=== PATIENT | female | born 1940 ===

== ENCOUNTER 2017-03-23 09:50 | Emergency (ER) | payer MEDICARE, OTHER ==
[2017-03-23 09:54] VITALS: BMI 25.4
[2017-03-23 09:58] VITALS: RESP 18; TEMP 98.2
--- NOTE | 2017-03-23 10:06 | ED PDOC ---
Arrival/HPI - General Chief Complaint: Female Genitourinary Time Seen by Provider: 03/23/17 10:05 Historian: Patient - History of Present Illness Narrative History of Present Illness (Text): 03/23/17 10:06 This 76 yo female with pmh uterine prolapse, gastric ulcer, left knee arthritis , presents to this ED c/o vaginal bleeding x 3 days. Bleeding is mild, but she feels prolapse has worsen. Denies other complains. Time/Duration: < week Context: Home Past Medical History - Provider Review Nursing Documentation Reviewed: Yes - Infectious Disease Hx of Infectious Diseases: None - Musculoskeletal/Rheumatological Hx Musculoskeletal Disorders: Yes Other/Comment: L knee pain, chronic - Gastrointestinal Hx Gastrointestinal Disorders: No - Psychiatric Hx Psychophysiologic Disorder: No Hx Substance Use: No - Anesthesia Hx Anesthesia: No Family/Social History - Physician Review Nursing Documentation Reviewed: Yes Family/Social History: No Known Family HX Smoking Status: Never Smoked Hx Alcohol Use: No Hx Substance Use: No Allergies/Home Meds Allergies/Adverse Reactions: Allergies No Known Allergies Allergy (Verified 03/23/17 09:54) Review of Systems - Review of Systems Constitutional: Normal. absent: Fatigue, Weight Change, Fevers, Night Sweats Eyes: Normal ENT: Normal Respiratory: Normal. absent: SOB, Cough Cardiovascular: Normal. absent: Chest Pain, Palpitations Gastrointestinal: Normal. absent: Abdominal Pain, Nausea, Vomiting Genitourinary Female: Vaginal Bleeding, Other (vaginal itching.). absent: Dysuria, Frequency, Hematuria, Vaginal Discharge Musculoskeletal: Normal. absent: Back Pain Skin: Normal Neurological: Normal. absent: Headache, Dizziness Endocrine: Normal Hemo/Lymphatic: Normal Psychiatric: Normal Physical Exam Vital Signs Temp Pulse Resp BP Pulse Ox 03/23/17 12:18 67 18 149/69 96 03/23/17 11:37 66 18 148/65 95 03/23/17 09:57 98.2 F 68 18 151/68 H 95 Temperature: Afebrile Blood Pressure: Normal Pulse: Regular Respiratory Rate: Normal Appearance: Positive for: Well-Appearing, Non-Toxic, Comfortable Pain Distress: None Mental Status: Positive for: Alert and Oriented X 3 - Systems Exam Head: Present: Atraumatic, Normocephalic Pupils: Present: PERRL Extroacular Muscles: Present: EOMI Conjunctiva: Present: Normal Mouth: Present: Moist Mucous Membranes Neck: Present: Normal Range of Motion Respiratory/Chest: Present: Clear to Auscultation, Good Air Exchange. No: Respiratory Distress, Accessory Muscle Use Cardiovascular: Present: Regular Rate and Rhythm, Normal S1, S2. No: Murmurs Abdomen: Present: Normal Bowel Sounds. No: Tenderness, Distention, Peritoneal Signs Back: Present: Normal Inspection Upper Extremity: Present: Normal Inspection. No: Cyanosis, Edema Lower Extremity: Present: Normal Inspection. No: Edema Neurological: Present: GCS=15, CN II-XII Intact, Speech Normal Skin: Present: Warm, Dry, Normal Color. No: Rashes Psychiatric: Present: Alert, Oriented x 3, Normal Insight, Normal Concentration Medical Decision Making ED Course and Treatment: 03/23/17 12:20 Re-evaluation. Patient feels better. Discussed results and plan with patient who expresses understanding. All questions answered and there is agreement with the plan to discharge home with instructions. Patient stable for discharge. Return if symptoms persist or worsen. Re-evaluation Time: 12:20 Reassessment Condition: Re-examined, Improved - Lab Interpretations Lab Results: 03/23/17 10:55 03/23/17 10:55 Lab Results 03/23/17 10:55: Sodium 141, Potassium 4.2, Chloride 106, Carbon Dioxide 30, Anion Gap 9 L, BUN 13, Creatinine 0.7, Est GFR ( Amer) > 60, Est GFR (Non -Af Amer) > 60, Random Glucose 89, Calcium 9.9, Total Bilirubin 0.5, AST 32, ALT 32, Alkaline Phosphatase 107, Total Protein 7.2, Albumin 3.8, Globulin 3.3, Albumin/Globulin Ratio 1.2 03/23/17 10:55: Urine Color Yellow, Urine Appearance Clear, Urine pH 6.0, Ur Specific [place] 1.020, Urine Protein Negative, Urine Glucose (UA) Negative, Urine Ketones Negative, Urine Blood Trace-intact H, Urine Nitrate Negative, Urine Bilirubin Negative, Urine Urobilinogen 0.2, Ur Leukocyte Esterase Small H , Urine RBC 0 - 2, Urine WBC 1 - 3, Ur Epithelial Cells 0 - 2, Urine Bacteria Few 03/23/17 10:55: WBC 5.0, RBC 3.86, Hgb 11.6 L, Hct 35.9 L, MCV 93.0, MCH 30.1, MCHC 32.3, RDW 14.0, Plt Count 159, MPV 12.5 H, Gran % 55.2, Lymph % (Auto) 34.1 , Branch % (Auto) 7.7 H, Eos % (Auto) 2.8, Baso % (Auto) 0.2, Gran # 2.74, Lymph # 1.7, Branch # 0.4, Eos # 0.1, Baso # 0.01 I have reviewed the lab results: Yes Interpretation: No clinic. lab abnormalty Disposition/Present on Arrival - Present on Arrival Any Indicators Present on Arrival: No History of DVT/PE: No History of Uncontrolled Diabetes: No Urinary Catheter: No History of Decub. Ulcer: No History Surgical Site Infection Following: None - Disposition Have Diagnosis and Disposition been Completed?: Yes Diagnosis: Uterine prolapse Disposition: HOME/ ROUTINE Disposition Time: 12:21 Patient Plan: Discharge Patient Problems: Current Active Problems Problem Status Onset Uterine prolapse Acute Condition: GOOD Discharge Instructions (ExitCare): Uterine Prolapse (ED) Additional Instructions: Call private Ceramic Designer for follow up visit in 1-2 days. Or call GEOMETRY PROFESSOR regasification plant operator , Dr. Lewis office. Return to emergency if symptoms worsen. Take medication as instructed. Prescriptions: Cephalexin [Keflex] 500 mg PO BID #10 capsule Referrals: PCPARLIN [Primary Care Provider] - Follow up with primary Chapo Lewis DO [Staff Provider] - Follow up with primary
[2017-03-23 11:09] LABS: ADD MANUAL DIFF? NO
[2017-03-23 11:11] LABS: URINE BILIRUBIN NEGATIVE (NEGATIVE); URINE BLOOD TRACE-INTACT (NEGATIVE); URINE GLUCOSE (UA) NEGATIVE (NEGATIVE); URINE KETONE NEGATIVE (NEGATIVE); URINE LEUKOCYTE ESTERASE SMALL Leu/uL (NEGATIVE); URINE PROTEIN NEGATIVE mg/dL (<30 mg/dL); URINE UROBILINOGEN 0.2 E.U./dL (<1 E.U./dL)
[2017-03-23 11:13] LABS: URINE APPEARANCE CLEAR (CLEAR); URINE COLOR YELLOW (YELLOW)
[2017-03-23 11:14] LABS: BASO # 0.01 K/mm3 (0.0-2.0); BASO % 0.2 % (0.0-3.0); EOS # 0.1 (0.0-0.7); EOS % 2.8 % (1.5-5.0); GRAN # 2.74 (1.4-6.5); GRAN % 55.2 % (50.0-68.0); HEMATOCRIT 35.9 % (36.0-48.0); LYMPH # 1.7 (1.2-3.4); LYMPH % 34.1 % (22.0-35.0); MEAN CORPUSCULAR HEMOGLOBIN 30.1 pg (25.0-35.0); MEAN CORPUSCULAR HGB CONC 32.3 g/dl (31.0-37.0); MEAN PLATELET VOLUME 12.5 fl (7.0-11.0); MONO # 0.4 (0.1-0.6); MONO % 7.7 % (1.0-6.0); PLATELET COUNT 159 10^3/uL (120.0-450.0)
[2017-03-23 11:24] LABS: ALB/GLOB RATIO 1.2 (1.1-1.8); ALKALINE PHOSPHATASE 107 U/L (38-133); ALT/SGPT 32 U/L (7-56); AST/SGOT 32 U/L (15-39); BILIRUBIN,TOTAL 0.5 mg/dL (0.2-1.3); BLOOD UREA NITROGEN 13 mg/dL (7-21); CALCIUM 9.9 mg/dL (8.4-10.5); CARBON DIOXIDE 30 mmol/L (21-33); CHLORIDE 106 mmol/L (98-107); GFR AFRICAN-AMERICAN > 60; GLUCOSE,RANDOM 89 mg/dL (70-110); POTASSIUM 4.2 mmol/L (3.6-5.0); SODIUM 141 mmol/L (132-148); TOTAL PROTEIN 7.2 g/dL (5.8-8.3)
[2017-03-23 11:25] LABS: URINE BACTERIA FEW (NEG); URINE EPITHELIAL CELLS 0 - 2 /hpf (0-5); URINE RBC 0 - 2 /hpf (0-2)
[2017-03-23 12:18] VITALS: BP 149/69; PULSE 67; O2SAT 96
== END 2017-03-23 12:49 | disposition home or self-care (01) ==
LOC: ED 09:50
DX: N81.4 Uterovaginal prolapse, unspecified (principal)